=== PATIENT | female | born 2000 | race Caucasian/White ===

== ENCOUNTER 2024-12-25 09:20 | Emergency (ER) | payer OTHER ==
[~2024-12-25] VITALS: Ht 175.3 cm; Wt 68.3 kg
[2024-12-25 11:36] VITALS: BP 125/56; TEMP 98; O2SAT 100
== END 2024-12-25 12:47 | disposition home or self-care (01) ==
LOC: M ED 09:20
DX: O22.02 Varicose veins of lower extremity in pregnancy, second trimester (principal); I83.813 Varicose veins of bilateral lower extremities with pain; M79.662 Pain in left lower leg; Z3A.24 24 weeks gestation of pregnancy

== ENCOUNTER 2025-03-26 15:45 | Outpatient (CLI) | payer OTHER ==
[~2025-03-26] VITALS: Ht 175.3 cm; Wt 73.9 kg
[2025-03-26] MEDS ORDERED: PRENTAB9 PO (15:56)
[2025-03-26 16:02] VITALS: BP 127/71
== END 2025-03-26 17:37 | disposition home or self-care (01) ==
LOC: M LDO 15:45
PROVIDERS: ATTEND Obstetrics & Gynecology
DX: O26.893 Other specified pregnancy related conditions, third trimester (principal); N89.8 Other specified noninflammatory disorders of vagina; Z3A.36 36 weeks gestation of pregnancy